=== PATIENT | female | born 1975 | race Caucasian/White ===

== ENCOUNTER 2021-02-18 23:45 | Inpatient (IN) | payer OTHER, BC ==
[2021-02-19] MEDS ORDERED: Fentanyl 100 MCG/2 ML VIAL ONE ×3 (00:49→15:18)
[2021-02-19] MEDS ORDERED: ceFAZolin 2 GM/DEX 5% 100 ML BAG ONE ×2 (00:49→12:17)
[2021-02-19] MEDS ORDERED: Boostrix 0.5 ML (Tdap) VIAL ONE ×2 (00:49→00:53)
[2021-02-19 01:40] LABS: ALT (SGPT) 21 U/L (8-55); AST (SGOT) 18 U/L (5-34); Alkaline Phosphatase 96 U/L (40-110); Anion Gap 13 mmol/L (10-20); BUN (Urea Nitrogen) 7 mg/dL (7.0-18.7); Bilirubin, Total 0.3 mg/dL (0.2-1.2); Calc. Creatinine Clearance 0 mL/min (70-130); Calcium 9.2 mg/dL (7.8-10.44); Carbon Dioxide 22 mmol/L (22-29); Chloride 104 mmol/L (98-107); Globulin 3.1 g/dL (2.4-3.5); Glucose 108 mg/dL (70-105); Potassium 3.7 mmol/L (3.5-5.1); Protein, Total 7.1 g/dL (6.0-8.3); Sodium 135 mmol/L (136-145)
[2021-02-19 01:42] LABS: #Basophils 0.1 thou/uL (0.0-0.2); #Lymphocytes 1.6 thou/uL (1.20-3.40); #Monocytes 0.3 thou/uL (0.11-0.59); #Neutrophils 9.6 thou/uL (1.40-6.50); %Basophils 0.5 % (0.0-1.0); %Eosinophils 0.3 % (0.0-10.0); %Monocytes 2.8 % (0.0-10.0); %Neutrophils 82.4 % (42.0-75.0); Hemoglobin 12.5 g/dL (12.0-16.0); Mean Corpuscular HGB CONC 32.6 g/dL (32.0-36.0); Mean Corpuscular Hemoglobin 27.9 pg (27.0-31.0); Mean Corpuscular Volume 85.5 fL (78.0-98.0); Mean Platelet Volume 7.1 fL (7.4-10.4); Platelet Count 389 thou/uL (130-400); Red Blood Cell (RBC) Count 4.49 mill/uL (4.20-5.40); White Blood Cell (WBC) Count 11.7 thou/uL (4.8-10.8)
[2021-02-19] MEDS ORDERED: Ketamine 50 MG/ML (10ML VIAL) ONE (02:13)
[2021-02-19] MEDS ORDERED: Ondansetron PF 4 MG/2 ML Vial IVP PRN (02:17)
[2021-02-19] MEDS ORDERED: hydrALAZINE 20 MG/ML VIAL SLOW IVP PRN (02:17)
[2021-02-19] MEDS ORDERED: Dextrose 5% in Water 1,000 ML IV PRN (02:17)
[2021-02-19] MEDS ORDERED: Dextrose 50% Abboject 50 ML SYRINGE SLOW IVP PRN (02:17)
[2021-02-19] MEDS ORDERED: Cyclobenzaprine 10 MG TAB PO PRN (02:19)
[2021-02-19] MEDS ORDERED: traMADol HCl 50 MG TAB PO PRN (02:19)
[2021-02-19] MEDS ORDERED: Ondansetron PF 4 MG/2 ML Vial ONE ×2 (02:26→14:41)
[2021-02-19] MEDS ORDERED: Morphine 4 MG/ML VIAL ONE (02:26)
[2021-02-19] MEDS: Acetaminophen 500 MG TAB PO SCH ×4 (04:54→20:30)
[2021-02-19] MEDS: Ibuprofen 200 MG TAB PO SCH ×3 (04:55→20:29)
[2021-02-19] MEDS: Sodium Chloride 0.9% 1,000 ML IV SCH ×2 (04:59→12:38)
[2021-02-19] MEDS: Morphine 4 MG/ML VIAL SLOW IVP PRN ×2 (05:11→09:31)
[2021-02-19 07:02] VITALS: BMI 31.9
[2021-02-19] MEDS: Gabapentin 300 MG CAP PO SCH ×3 (09:32→20:30)
[2021-02-19] MEDS: Famotidine 20 MG TAB PO SCH ×2 (09:33→20:29)
[2021-02-19] MEDS: Senokot S 8.6-50 MG TAB PO SCH ×2 (09:40→20:29)
[2021-02-19] MEDS: Polyethylene Glycol 3350 17 GM Packet PO SCH (09:40)
[2021-02-19] MEDS ORDERED: FLU VACC QS2021-22(6MOS UP)/PF 60 MCG/0.5 ML SYRINGE IM ONE (12:00)
[2021-02-19 12:03] LABS: SARS-CoV-2 NAA Rapid Test Not Detected (NotDetected)
[2021-02-19] MEDS ORDERED: Midazolam HCl 2 mg/2 ml Vial ONE (13:17)
[2021-02-19] MEDS ORDERED: Neomycin-Polymyxin 1 ML AMP ONE (13:21)
[2021-02-19] MEDS ORDERED: Bupivacaine PF 0.5% 30 ML VIAL ONE (13:21)
[2021-02-19] MEDS ORDERED: ceFAZolin Sodium/D5W 2 GM in Premix Bag 1 BAG IVPB SCH (14:00)
[2021-02-19] MEDS ORDERED: Lidocaine 1% PF 5 ML VIAL ONE (14:41)
[2021-02-19] MEDS ORDERED: Dexamethasone 20 MG/5 ML VIAL ONE (14:41)
[2021-02-19] MEDS ORDERED: PROPOFOL 200 MG/20 ML VIAL ONE (14:41)
[2021-02-19] MEDS: traMADol HCl 50 MG TAB PO PRN (20:31)
[2021-02-19] MEDS: CEFAZOLIN 2 GM in Premix Bag 1 BAG IVPB SCH (20:31)
[2021-02-20] MEDS: Acetaminophen 500 MG TAB PO SCH ×4 (01:47→21:01)
[2021-02-20] MEDS: Sodium Chloride 0.9% 1,000 ML IV SCH (03:01)
[2021-02-20] MEDS: CEFAZOLIN 2 GM in Premix Bag 1 BAG IVPB SCH ×3 (05:23→21:10)
[2021-02-20] MEDS: Ibuprofen 200 MG TAB PO SCH ×3 (05:23→21:01)
[2021-02-20 05:35] LABS: #Monocytes 0.5 thou/uL (0.11-0.59); #Neutrophils 7.5 thou/uL (1.40-6.50); %Basophils 0.1 % (0.0-1.0); %Lymphocytes 11.5 % (21.0-51.0); %Monocytes 5.2 % (0.0-10.0); %Neutrophils 83.1 % (42.0-75.0); Hemoglobin 10.8 g/dL (12.0-16.0); Mean Corpuscular HGB CONC 33.8 g/dL (32.0-36.0); Mean Corpuscular Hemoglobin 29.3 pg (27.0-31.0); Mean Corpuscular Volume 86.5 fL (78.0-98.0); Mean Platelet Volume 7.1 fL (7.4-10.4); Platelet Count 346 thou/uL (130-400)
[2021-02-20 06:04] LABS: Anion Gap 9 mmol/L (10-20); BUN (Urea Nitrogen) 8 mg/dL (7.0-18.7); Calc. Creatinine Clearance 145 mL/min (70-130); Carbon Dioxide 25 mmol/L (22-29); Chloride 107 mmol/L (98-107); Glucose 119 mg/dL (70-105); Magnesium 2.1 mg/dL (1.6-2.6); Phosphorus 2.9 mg/dL (2.3-4.7); Potassium 4.4 mmol/L (3.5-5.1); Sodium 137 mmol/L (136-145)
[2021-02-20] MEDS: Senokot S 8.6-50 MG TAB PO SCH ×2 (10:04→20:59)
[2021-02-20] MEDS: Gabapentin 300 MG CAP PO SCH ×3 (10:04→21:00)
[2021-02-20] MEDS: Polyethylene Glycol 3350 17 GM Packet PO SCH (10:04)
[2021-02-20] MEDS: Famotidine 20 MG TAB PO SCH ×2 (10:04→20:59)
[2021-02-20] MEDS: traMADol HCl 50 MG TAB PO PRN (20:59)
[2021-02-20] MEDS: Aspirin 81 mg Enteric Coated Tablet PO SCH (20:59)
[2021-02-20] MEDS ORDERED: CEFAZOLIN 2 GM in Premix Bag 1 BAG IVPB SCH (21:15)
[2021-02-21] MEDS: Acetaminophen 500 MG TAB PO SCH ×4 (00:37→21:22)
[2021-02-21 05:16] LABS: Hemoglobin 9.8 g/dL (12.0-16.0); Mean Corpuscular HGB CONC 31.8 g/dL (32.0-36.0); Mean Corpuscular Hemoglobin 27.5 pg (27.0-31.0); Mean Corpuscular Volume 86.5 fL (78.0-98.0); RBC Distribution Width 13.2 % (11.5-14.5); Red Blood Cell (RBC) Count 3.57 mill/uL (4.20-5.40); White Blood Cell (WBC) Count 8.1 thou/uL (4.8-10.8)
[2021-02-21 05:17] LABS: #Basophils 0.1 thou/uL (0.0-0.2); #Eosinphils 0.1 thou/uL (0.0-0.7); #Lymphocytes 3.2 thou/uL (1.20-3.40); #Monocytes 0.5 thou/uL (0.11-0.59); #Neutrophils 4.3 thou/uL (1.40-6.50); %Basophils 0.7 % (0.0-1.0); %Eosinophils 1.3 % (0.0-10.0); %Lymphocytes 39.4 % (21.0-51.0); %Monocytes 6.5 % (0.0-10.0); %Neutrophils 52.2 % (42.0-75.0); Platelet Count 312 thou/uL (130-400)
[2021-02-21] MEDS: CEFAZOLIN 2 GM in Premix Bag 1 BAG IVPB SCH ×2 (05:40→14:01)
[2021-02-21] MEDS: Ibuprofen 200 MG TAB PO SCH ×3 (05:41→20:39)
[2021-02-21] MEDS ORDERED: CEFAZOLIN 2 GM, Admixture Fee 1 EACH in Sodium Chloride 0.9% 100 ML IVPB SCH (07:30)
[2021-02-21] MEDS: Polyethylene Glycol 3350 17 GM Packet PO SCH (10:05)
[2021-02-21] MEDS: Senokot S 8.6-50 MG TAB PO SCH ×2 (10:06→20:40)
[2021-02-21] MEDS: Aspirin 81 mg Enteric Coated Tablet PO SCH ×2 (10:07→20:39)
[2021-02-21] MEDS: Famotidine 20 MG TAB PO SCH ×2 (10:08→20:38)
[2021-02-21] MEDS: Gabapentin 300 MG CAP PO SCH ×3 (10:08→20:40)
[2021-02-21] MEDS ORDERED: Loratadine 10 MG TAB PO PRN (10:33)
[2021-02-21] MEDS: traMADol HCl 50 MG TAB PO PRN (20:41)
[2021-02-21] MEDS ORDERED: ceFAZolin Sodium/D5W 2 GM in Premix Bag 1 BAG IVPB SCH (21:00)
[2021-02-21] MEDS ORDERED: CEFAZOLIN 2 GM in Sodium Chloride 0.9% 100 ML IVPB SCH (21:30)
[2021-02-22] MEDS: Acetaminophen 500 MG TAB PO SCH ×4 (03:22→20:14)
[2021-02-22] MEDS: Ibuprofen 200 MG TAB PO SCH ×3 (05:57→22:56)
[2021-02-22] MEDS: Gabapentin 300 MG CAP PO SCH ×3 (08:31→20:15)
[2021-02-22] MEDS: Senokot S 8.6-50 MG TAB PO SCH ×2 (08:32→20:16)
[2021-02-22] MEDS: Famotidine 20 MG TAB PO SCH ×2 (08:32→20:15)
[2021-02-22] MEDS: Aspirin 81 mg Enteric Coated Tablet PO SCH ×2 (08:32→20:15)
[2021-02-22] MEDS: Polyethylene Glycol 3350 17 GM Packet PO SCH (08:35)
[2021-02-22] MEDS ORDERED: Midazolam HCl 2 mg/2 ml Vial ONE ×2 (10:29→11:36)
[2021-02-22] MEDS ORDERED: Fentanyl 100 MCG/2 ML VIAL ONE ×4 (10:29→15:13)
[2021-02-22] MEDS ORDERED: ceFAZolin 2 GM/DEX 5% 100 ML BAG ONE (11:24)
[2021-02-22] MEDS ORDERED: PROPOFOL 200 MG/20 ML VIAL ONE (12:30)
[2021-02-22] MEDS ORDERED: Bupivacaine HCl 0.5%/Epinephrine 1:200,000/PF 30 ml Vial ONE (12:30)
[2021-02-22] MEDS ORDERED: Ondansetron PF 4 MG/2 ML Vial ONE (12:30)
[2021-02-22] MEDS ORDERED: Dexamethasone 20 MG/5 ML VIAL ONE (12:30)
[2021-02-22] MEDS ORDERED: PHENYLEPHRINE-NS 100 MCG/ML 10 ML SYRINGE ONE (12:30)
[2021-02-22] MEDS ORDERED: HYDROmorphone 2 MG/ML VIAL ONE (15:26)
[2021-02-22] MEDS ORDERED: Gabapentin 300 MG CAP ONE (16:00)
[2021-02-22] MEDS ORDERED: Ondansetron PF 4 MG/2 ML Vial IVP PRN (16:15)
[2021-02-22] MEDS ORDERED: Naloxone HCl 0.4 mg/ml Vial IV PRN (16:15)
[2021-02-22] MEDS ORDERED: diphenhydrAMINE 50 MG/ML VIAL IM/IV PRN (16:15)
[2021-02-22] MEDS ORDERED: diphenhydrAMINE 25 MG CAP PO PRN (16:15)
[2021-02-22] MEDS ORDERED: Morphine Sulfate 100 MG in Dextrose 5% in Water 98 ML IV SCH (16:15)
[2021-02-22] MEDS ORDERED: ceFAZolin 2 GM/DEX 5% 100 ML BAG IVPB SCH (20:00)
[2021-02-22] MEDS: ceFAZolin Sodium/D5W 2 GM in Premix Bag 1 BAG IVPB SCH (20:16)
[2021-02-23] MEDS: Acetaminophen 500 MG TAB PO SCH ×3 (02:57→14:50)
[2021-02-23] MEDS: ceFAZolin Sodium/D5W 2 GM in Premix Bag 1 BAG IVPB SCH (04:39)
[2021-02-23] MEDS: Ibuprofen 200 MG TAB PO SCH ×2 (05:53→14:49)
[2021-02-23 06:08] LABS: #Basophils 0.1 thou/uL (0.0-0.2); #Lymphocytes 1.4 thou/uL (1.20-3.40); #Monocytes 0.8 thou/uL (0.11-0.59); #Neutrophils 10.2 thou/uL (1.40-6.50); %Basophils 0.7 % (0.0-1.0); %Lymphocytes 11.3 % (21.0-51.0); %Monocytes 6.2 % (0.0-10.0); %Neutrophils 81.9 % (42.0-75.0); Mean Corpuscular HGB CONC 32.6 g/dL (32.0-36.0); Mean Corpuscular Hemoglobin 28.1 pg (27.0-31.0); Mean Corpuscular Volume 86.3 fL (78.0-98.0); Mean Platelet Volume 6.8 fL (7.4-10.4); Platelet Count 355 thou/uL (130-400); RBC Distribution Width 12.9 % (11.5-14.5); Red Blood Cell (RBC) Count 3.58 mill/uL (4.20-5.40); White Blood Cell (WBC) Count 12.5 thou/uL (4.8-10.8)
[2021-02-23 08:03] VITALS: BP 146/91; TEMP 98.3
[2021-02-23] MEDS: Senokot S 8.6-50 MG TAB PO SCH (08:06)
[2021-02-23] MEDS: Aspirin 81 mg Enteric Coated Tablet PO SCH (08:07)
[2021-02-23] MEDS: Famotidine 20 MG TAB PO SCH (08:07)
[2021-02-23] MEDS: Polyethylene Glycol 3350 17 GM Packet PO SCH (08:07)
[2021-02-23] MEDS: Gabapentin 300 MG CAP PO SCH ×2 (08:07→14:51)
== END 2021-02-23 15:15 | disposition home or self-care (01) | DRG 494 ==
LOC: ERS 23:45 → SURG B 02-19 02:20
PROVIDERS: ADMIT Specialist; ATTEND Surgery
PROC: 0QSG04Z Reposition Right Tibia with Internal Fixation Device, Open Approach (ICD-10-PCS; principal; 2021-02-19)
PROC: 0QSG04Z Reposition Right Tibia with Internal Fixation Device, Open Approach (ICD-10-PCS; 2021-02-19)
PROC: 0QSJ04Z Reposition Right Fibula with Internal Fixation Device, Open Approach (ICD-10-PCS; 2021-02-19)
DX: S82.251B Displaced comminuted fracture of shaft of right tibia, initial encounter for open fracture type I or II (principal); S82.451B Displaced comminuted fracture of shaft of right fibula, initial encounter for open fracture type I or II; Z20.822 Contact with and (suspected) exposure to COVID-19; Z23 Encounter for immunization; W17.89XA Other fall from one level to another, initial encounter; Y92.39 Other specified sports and athletic area as the place of occurrence of the external cause
CPT/HCPCS: 36415; 71045; 76000; 80048; 80053; 80307; 83735; 84100; 85025; 90715; 93005; C1713; G0390; J0690; J1100; J1170; J2250; J2270; J2405; J2704; J3010; J3490; J7050; S0020; U0002